=== PATIENT | male | born 1950 | race Two or more races ===

== ENCOUNTER 2018-01-19 21:39 | Emergency (ER) | payer MEDICARE, BC ==
[2018-01-19] MEDS ORDERED: NS 0.9% 1000 ML* 1,000 ML IV ONE (22:09)
--- NOTE | 2018-01-19 22:17 | ED ---
Palpitations / Dysrhythmia - HPI Summary HPI Summary: This patient is a 67 year old M presenting to [facility] accompanied by his with a chief complaint of sudden onset weakness since 21:00. The patient reports that his symptoms began after he had a glass of wine at a restaurant. The patient rates the pain 0/10 in severity. Symptoms aggravated by nothing. Symptoms alleviated by nothing. Patient reports palpitations, lightheadedness, and nausea. Patient notes that he felt like he was going to pass out. The patients notes that the patients hands were cold. The patient reports that the palpitations resolved within 3-4 minutes after onset. The patient reports that his other symptoms resolved [employer]TE[employer] while he has in the ambulance. The patient has CLL and has been taking oral chemotherapy medication daily. The patient reports that he has never experienced these symptoms before. Per triage note, the patient reports that he has never combined the chemotherapy medication and alcohol before. - History of Current Complaint Chief Complaint: EDWeakness Time Seen by Provider: 01/19/18 22:04 Hx Obtained From: Patient, Family/Graphic Engineer - patient's Onset/Duration: Sudden Onset, Lasting Minutes, Resolved Severity Initially: Mild Severity Currently: None Character: Fast Aggravating: Nothing Alleviating: Nothing PMH/Surg Hx/FS Hx/Imm Hx Endocrine/Hematology History: Reports: Other Endocrine/Hematological Disorders - CLL - Cancer History Cancer Type, Location and Year: CLL Infectious Disease History: No Infectious Disease History: Denies: Traveled Outside the [place] in Last 30 Days - Family History Known Family History: Positive: None - patient denies relevant FHx - Social History Lives: With Family Alcohol Use: Rare Review of Systems Negative: Fever Positive: Palpitations Positive: Nausea Neurological: Other - lightheadedness Positive: Weakness All Other Systems Reviewed And Are Negative: Yes Physical Exam - Summary Physical Exam Summary: Appearance: Well-appearing, Well-nourished, lying in bed comfortably Skin: Warm, dry, no obvious rash Eyes: sclera anicteric, no conjunctival pallor ENT: mucous membranes moist, pharynx appears normal Neck: Supple, nontender Respiratory: Clear to auscultation, no signs of respiratory distress Cardiovascular: Normal S1, S2. No murmurs. Normal distal pulses in tibial and radial bilaterally. Abdomen: Soft, nontender, normal active bowel sounds present Musculoskeletal: Normal, Strength/ROM Intact Neurological: A&Ox3, awake and alert, mentation is normal, speech is fluent and appropriate Psychiatric: affect is normal, does not appear anxious or depressed Triage Information Reviewed: Yes Vital Signs On Initial Exam: Initial Vitals Temp Pulse Resp BP Pulse Ox 98.0 F 67 15 122/67 99 01/19/18 21:57 01/19/18 21:57 01/19/18 21:57 01/19/18 21:57 01/19/18 21:57 Vital Signs Reviewed: Yes Diagnostics - Vital Signs Vital Signs Temp Pulse Resp BP Pulse Ox 01/19/18 21:57 98.0 F 67 15 122/67 99 - Laboratory Result Diagrams: 01/19/18 22:15 01/19/18 22:15 Lab Statement: Any lab studies that have been ordered have been reviewed, and results considered in the medical decision making process. - EKG 22:42 Cardiac Rate: NL - at 73 bpm EKG Rhythm: Sinus Rhythm EKG Interpretation: 0.[address] elevation, not significant Course/Dx - Course Course Of Treatment: This is a 67-year-old man with no history of heart disease are presents with a transient period of palpitations accompanied by lightheadedness and nausea. He ascribes feeling like his pulse was quite rapid. This would be consistent with a arrhythmia such as SVT. There are no red flags, such as syncope, chest pain, or other worrisome historical features. He was observed for area approximate 4 hours and did not develop any arrhythmias, and his lab work including troponin tests are negative. I believe he is stable for discharge at this point - Diagnoses Provider Diagnoses: Palpitations Discharge - Sign-Out/Discharge Documenting (check all that apply): Patient Departure - Discharge Plan Condition: Good Disposition: HOME Patient Education Materials: Supraventricular Tachycardia (ED), Heart Palpitations (ED) Referrals: No Primary Care Phys,NOPCP [Primary Care Provider] - Additional Instructions: I suspect that you had a transient problem with your heart rhythm. The tests we did tonight all looked good and I think you are stable to continue your trip , but I would ask you to consult a pst manager when you get back home to [place]. - Billing Disposition and Condition Condition: GOOD Disposition: Home - Attestation Statements Document Initiated by Scribe: Yes Documenting Scribe: Candisheena Perry Provider For Whom Scribe is Documenting (Include Credential): Nicola Perez MD Scribe Attestation: ICandis, scribed for Nicola Perez MD on 01/20/18 at 0540. Scribe Documentation Reviewed: Yes Provider Attestation: The documentation as recorded by the renéeibeCandis accurately reflects the service I personally performed and the decisions made by me, Nicola Perez MD
[2018-01-19 22:33] LABS: Hematocrit 34 % (42-52); Hemoglobin 10.7 g/dl (14.0-18.0); Mean Corpuscular HGB Conc 32 g/dl (31-36); Mean Corpuscular Hemoglobin 26 pg (27-31); Mean Corpuscular Volume 83 fL (80-94); Mean Platelet Volume 8.9 um3 (7.4-10.4); Platelet Count 199 10^3/ul (150-450); Red Blood Count 4.11 10^6/ul (4.00-5.40); Red Cell Distribution Width 15 % (10.5-15); White Blood Count 48.1 10^3/ul (3.5-10.8)
[2018-01-19 22:43] LABS: EGFR Non-African American 53.3 (>60)
[2018-01-19 23:40] LABS: ABS Basophils 0.1 10^3/ul (0-0.2); ABS Eosinophils 0.2 10^3/ul (0-0.6); ABS Lymphocytes 39.3 10^3/ul (1.0-4.8); ABS Neutrophils 7.4 10^3/ul (1.5-7.7); ABS Nucleated RBC 0.1 10^3/ul; Eosinophil % 0.5 % (0-6); Lymphocyte % 81.8 % (25-47); Nucleated Red Blood Cells % 0.2
[2018-01-20 02:28] VITALS: BP 117/75
== END 2018-01-20 02:26 | disposition home or self-care (01) ==
LOC: ED 21:39
DX: R00.2 Palpitations (principal); R11.0 Nausea; R42 Dizziness and giddiness; R53.1 Weakness
CPT/HCPCS: 36415; 80053; 84484; 85025; 85060; 93005; 96365; 99283